=== PATIENT | female | born 1965 | race Caucasian/White ===

== ENCOUNTER → 2019-07-01 15:12 | Outpatient (CLI) | payer BC, SELFPAY ==
--- NOTE | 2019-07-01 15:13 | RAD_ITS ---
STUDY: X-RAY - RIGHT ELBOW REASON FOR EXAM: Female, 54 years old. Pain x2 months, no injury. TECHNIQUE: 3 view(s) of the elbow. COMPARISON: None. FINDINGS: Normal visualized humerus, radius and ulna. Normal radiocapitellar and ulnotrochlear articulations. Mild soft tissue irregularity along the humeral epicondyle. There is a superimposed skin fold.. RAD/Elbow min 3 Views IMPRESSION: Normal x-ray examination of the elbow. Soft tissue findings may be due to inflammation such as epicondylitis, however there appears to be an additional adjacent skinfold superimposed. Correlation to point of maximum tenderness recommended. Electronically Signed: Emi Chan MD at 6:42 EST , Service support ,
== END ==
PROVIDERS: Family Provider Family Medicine; PCP Family Medicine; Referring Provider Orthopaedic Surgery; Visit Provider Orthopaedic Surgery
DX: M25.521 Pain in right elbow (principal)
CPT/HCPCS: 73080

== ENCOUNTER 2021-01-19 15:00 | Outpatient (RCR) | payer BC, SELFPAY ==
--- NOTE | 2020-09-04 16:04 | HP.PTEVAL_ITS ---
Patient's Visit Information LUIS WINSTON is a 55 year old F referred to Physical Therapy by SHANNON FAN with a diagnosis of L Hip labral repair and decompression for cam lesion. Date of Evaluation: 09/04/20 Physical Therapist: Blake Contreras, PT, KARISHMA, SCS, CSCS - Visit Plan Frequency: 1xweek for 4-6 Duration: 2 Months Plan: 1xweek per protocol. Will have to slow patient down as she is use to exercising for long periods - Subjective Mrs. Winston is a pleasant 55 year old who was referred to our care by Dr Fan at [facility]. Mrs Winston is an avid cycllist cycling 18K miles last year. She states that last December she caught her foot and twisted her hip. Dr Fan performed a labral repair and deompression of her femur. I'm familiar with this patient as I had treated her previous for same B hip condition. - Pain Left Hip Pain Intensity (Out of 10): 1 Pain Intensity Range: 1, 5 - Objective Alert and oreinted, attended PT with Juancarlos. Ambulating non weight bearing. PROM of hip is 90 flexion, 0 extension, abduction 40 degrees. R Int Rot 40/Ext rot 27. L Int Rot 25/35 with antalgic end range. MMT leg ext R 35.7/hamstring 23 L 20/10. Hip Flexion r 20/4. Incision no seepage or drainage per patietn report. - Goals Goal 1:: Understanding the extended rehab time frame. Goal Time Frame: 1 Week Goal 2:: Return demo HEP Goal Time Frame: 1 Week Goal 3:: ROM within 10% of uninvolved. Goal Time Frame: 4-6 Weeks Goal 4:: MMT with 10% Goal Time Frame: 6-8 Weeks - Rehabilitation Potential Physical Therapy Diagnosis: L Hip labral repair and decompression for cam lesion Rehabilitation Potential: Excellent - Anticipated Interventions Patient/Client Instruction: Educate patient on: Condition, Plan of Care For the Purpose of:: To decrease pain, To increase ROM Therapeutic Exercise to Include: Gait and locomotor training, Passive ROM For the Purpose of:: To increase ROM, To improve performance and independence with ADL's, To increase flexibility/ROM Thank you for the opportunity to evaluate your patient. For Medicare and Medicare HMO plans, please review the plan of care and approve it. It will need to be FAXED BACK to us at [phone] for Medicare purposes. For Medicare only, by signing this I certify the plan of care. Please let me know if there are questions or concerns regarding this plan of care. Physician Signature: Date:
--- NOTE | 2021-01-19 16:14 | HP.PTDCSUM ---
It has been my pleasure to treat LESLIE WINSTON referred by SHANNON HAMPTON, with the diagnosis of L Hip labral repair and decompression for cam lesion for a total of 19 visit(s). Discharge Date: Please see the following information for a summary of their discharge status. Subjective: This is Leslie's 19 visit for her Bilateral labral tears and FREEMAN decompression. She is scheduled to follow up with her surgeon next week. She was progressing nicely until she feel in her garage and did a split approximately 3 weeks ago. She feels if she is recovering from that recent episode. She has biked 3 times last week riding 60 miles each time. She has relatively no pain in her right hip. Her left hip feels about 70% improved since the surgery. Leslie is very knowledgeable and diligent about her exercises. She has recently started a new job which is pretty time demanding and has cut into her exercise time slightly. Overall has done well. Left Hip Pain Intensity (Out of 10): 1 Right Hip Pain Intensity (Out of 10): 0 % Improvement: 90 Objective/Function: ROM R hip int 35 ext 45 L int 50 ext 40. MMT R Knee Ext 42 flexion 24.9 L 53 Ext 26.7 Flexion. MMT Hip Flexion R 24.0 L 24.4. All MMT within 10% of each side. Slight imbalance between quad and hamstring. Tender to palpation in left hamstring right at ischial tuberosity. Mildly positive c signs for both legs at 90% flexion and internal rotation. No Noted crepitus in either hip with passive ROM. Today she had slight tenderness to her left adductor leah which would fit her SUSY from her slip. Goal 1:: Understanding the extended rehab time frame. Goal Progress: Goal Met Goal 2:: Return demo HEP Goal Progress: Goal Met Goal 3:: ROM within 10% of uninvolved. Goal Progress: Goal Met Goal 4:: MMT with 10% Goal Progress: Goal Met Plan: Fu in one month to redo exercise routine. Letter to physician If there are questions or concerns regarding this patient's physical therapy, please feel free to call me at [phone]. Thank you for the referral of this patient. Sincerely, Blake Contreras, PT, KARISHMA, SCS, CSCS
== END 2021-01-19 19:00 | disposition home or self-care (01) ==
LOC: PT 15:00
PROVIDERS: PCP Family Medicine
DX: Z98.890 Other specified postprocedural states (principal)
CPT/HCPCS: 97110; 97162; 97164